=== PATIENT | male | born 1985 | race Caucasian/White ===

== ENCOUNTER 2021-06-11 11:00 | Emergency (ER) | payer MEDICAID ==
[~2021-06-11] VITALS: Ht 170.2 cm; Wt 74.8 kg
[2021-06-11 11:08] VITALS: BP 157/85
--- NOTE | 2021-06-11 11:08 | NUR ---
PT AMBULATED TO ER BED 7 WITH STEADY GAIT.
--- NOTE | 2021-06-11 11:13 | NUR ---
DR. BARNEY AT PT BEDSIDE FOR FURTHER EVALUATION.
--- NOTE | 2021-06-11 11:23 | NUR ---
35 Y/O MALE C/O LEFT TESTICULAR PAIN 02/26 DESCRIBES SHARP AND CONSTANT RADIATES TO LLQ X1DAY. DENIES DYSURIA, DENIES HEMATURIA, DENIES TRAUMA/INJURY, DENIES N/V/D, DENIES FEVER/CHILLS. DENIES PMH NKA
--- NOTE | 2021-06-11 11:30 | NUR ---
US TECH AT PT BEDSIDE.
[2021-06-11] MEDS ORDERED: HYDROcodone/APAP 5/325 MG 1 TAB TAB PO ONE (13:00)
[2021-06-11 13:29] VITALS: BP 144/60
--- NOTE | 2021-06-11 13:29 | NUR ---
Patient discharged with v/s stable. Written and verbal after care instructions given and explained. Patient verbalized understanding. Ambulatory with steady gait. All questions addressed prior to discharge. Advised to follow up with PMD.
[2021-06-11 15:12] LABS: APPEARANCE,URINE CLEAR (CLEAR); BILIRUBIN,URINE NEGATIVE (NEGATIVE); BLOOD, URINE NEGATIVE (NEGATIVE); LEUKOCYTE ESTERASE ,URINE NEGATIVE (NEGATIVE); NITRITE, URINE NEGATIVE (NEGATIVE); UGLUCOSE NEGATIVE (NEGATIVE)
[2021-06-11 15:21] LABS: COLOR,URINE YELLOW (YELLOW)
== END 2021-06-11 13:29 | disposition home or self-care (01) ==
LOC: MED 11:00
DX: N50.812 Left testicular pain (principal)
CPT/HCPCS: 76870; 81003; 99284; Q0092

== ENCOUNTER 2021-10-27 12:56 | Emergency (ER) | payer SELFPAY ==
[~2021-10-27] VITALS: Ht 177.8 cm; Wt 103.9 kg
[2021-10-27 13:10] VITALS: BP 124/70
--- NOTE | 2021-10-27 14:20 | NUR ---
35 Y/O MALE C/O LEFT KNEE LACERATION, STATES HE WAS DOING YARDWORK AND PUT HIS KNEE DOWN IN THE GRASS AND GOT CUT ON SOME GLASS. NO ACTIVE BLEEDING NOTED. PT STATES THAT HE IS IN NO SIGNIFICANT PAIN AT THIS TIME. PT IS ALERT AND ORIENTED X4. PT IS ABLE TO WALK WITH A STEADY GAIT AND NO AMBULATION ASSIST. PMH: DENIES NKA
--- NOTE | 2021-10-27 14:25 | NUR ---
PT AMBULATED TO BED 7
--- NOTE | 2021-10-27 14:34 | NUR ---
PTS WOUND ON LEFT KNEE WAS IRRIGATED WITH BETADINE AND NORMAL SALINE. ERPA NOTIFIED.
--- NOTE | 2021-10-27 14:35 | NUR ---
XR AT PT BEDSIDE
[2021-10-27] MEDS ORDERED: LIDOCAINE MPF 1% 10 MG/ML VIAL INJ ONE (14:55)
--- NOTE | 2021-10-27 15:00 | NUR ---
DOMINGO FOLEY AT PT BEDSIDE, PERFOMING PROCEDURE. PT TOLERATING WELL.
[2021-10-27] MEDS ORDERED: BACITRACIN OINT 500 UNITS/GM PKT TP ONE ×2 (15:09→15:10)
--- NOTE | 2021-10-27 15:36 | NUR ---
Note pilovicenta in EDM - 10/27/21 at 1556 by YOGESH Patient discharged with v/s stable. Written and verbal after care instructions given and explained. Patient alert, oriented and verbalized understanding of instructions. Ambulatory with steady gait. All questions addressed prior to discharge. ID band removed. Patient advised to follow up with PMD. Rx of TYLENOL EXTRA STRENGTH, FLEXERIL, LIDODERM PATCH given. Patient educated on indication of medication including possible reaction and side effects. Opportunity to ask questions provided and answered.
[2021-10-27 15:49] VITALS: BP 124/70
== END 2021-10-27 15:49 | disposition home or self-care (01) ==
LOC: MED 12:56
DX: S81.012A Laceration without foreign body, left knee, initial encounter (principal); R03.0 Elevated blood-pressure reading, without diagnosis of hypertension; W25.XXXA Contact with sharp glass, initial encounter; Y93.89 Activity, other specified; Y92.89 Other specified places as the place of occurrence of the external cause; Y99.0 Civilian activity done for income or pay
CPT/HCPCS: 12002; 73562; 90471; 90715; 99283; J2001